=== PATIENT | female | born 1970 | race Asian ===

== ENCOUNTER 2025-02-09 14:39 | Inpatient (IN) | payer MEDICAID, OTHER ==
[~2025-02-09] VITALS: Ht 154.9 cm; Wt 41.4 kg
[~2025-02-09 14:39] MED LIST: DSS100 PO; FERR325T27 PO; FOLI-130 PO; FURO20TA5 PO; NOCURR; POTA-92 PO
[2025-02-09] MEDS: SODIUM CHLORIDE 0.9% 1,000 ML IV ONE (15:33)
[2025-02-09 15:43] LABS: PLATELET COUNT (AUTO) 241 K/uL (150-450); RED BLOOD CELL COUNT(AUTO) 4.62 MIL/uL (4.00-5.20); RED CELL DISTRIBUTION WIDTH 13.4 % (11.5-14.5); WHITE BLOOD COUNT (AUTO) 6.7 K/uL (4.5-11.0)
[2025-02-09 15:49] LABS: CALCIUM, TOTAL 9.2 mg/dL (8.8-10.5); CREATININE 1.13 mg/dL (0.60-1.30); GLOMERULAR FILTR. RATE CALC 50 mL/min (>60); GLUCOSE,RANDOM 83 mg/dL (70-110); SODIUM SERUM 137 mmol/L (136-145); UREA NITROGEN, BLOOD 24 mg/dL (7-18)
[2025-02-09 15:50] LABS: ALCOHOL, BLOOD (SERUM) < 3 mg/dL (0-10)
[2025-02-09 15:56] LABS: LACTIC ACID 0.6 mmol/L (0.4-2.0)
[2025-02-09 16:04] LABS: TROPONIN I-HIGH SENSITIVITY 36 ng/L (<51)
[2025-02-09 17:06] LABS: ASPARTATE AMINOTRANSFERASE 38.0 U/L (15-37); TOTAL PROTEIN, SERUM 8.5 g/dL (6.4-8.2)
[2025-02-09 18:30] LABS: APPEARANCE,URINE CLEAR (CLEAR); GLUCOSE, URINE (UA) NEGATIVE (NEGATIVE); LEUKOCYTE ESTERASE ,URINE SMALL (NEGATIVE); OCCULT BLOOD,URINE NEGATIVE (NEGATIVE); PH,URINE DRUG SCREEN 6.5 (5.0-8.0); SPECIFIC GRAVITIY, URINE 1.010 (1.003-1.030)
[2025-02-09 18:37] LABS: AMPHET/METH SCREEN,URINE NEGATIVE (NEGATIVE); BARBITURATE SCREEN, URINE NEGATIVE (NEGATIVE); CANNABINOID SCREEN,URINE NEGATIVE (NEGATIVE); COCAINE SCREEN,URINE NEGATIVE (NEGATIVE); METHADONE SCREEN, URINE NEGATIVE (NEGATIVE)
[2025-02-09 18:39] LABS: ALCOHOL, URINE DRUG SCREEN NEGATIVE (NEGATIVE)
[2025-02-09 18:43] LABS: NITRATE,URINE POSITIVE (NEGATIVE); SQUAMOUS EPITHELIAL CELL,UR Few /LPF (None Seen)
[2025-02-09] MEDS: MAGNESIUM SULFATE 2 GM, MVI, ADULT NO.1 WITH VIT K 10 ML, THIAMINE 100 MG, FOLIC ACID 1... IV ONE (19:16)
[2025-02-09] MEDS: CefTRIAXone 1 GM/DEXTROSE 50 ML IV SCH (21:02)
[2025-02-09] MEDS: HEPARIN SODIUM,PORCINE 5,000 UNITS/ML VIAL SQ SCH (23:32)
[2025-02-10] VITALS (7 sets, daily range): BP systolic 114–146; BP diastolic 48–63; PULSE 54–66; RESP 16–18; TEMP 97.6–98.6; O2SAT 98–100
[2025-02-10 06:48] LABS: PLATELET COUNT (AUTO) 226 K/uL (150-450); RED BLOOD CELL COUNT(AUTO) 4.30 MIL/uL (4.00-5.20); RED CELL DISTRIBUTION WIDTH 13.3 % (11.5-14.5); WHITE BLOOD COUNT (AUTO) 6.0 K/uL (4.5-11.0)
[2025-02-10 07:06] LABS: CALCIUM, TOTAL 8.6 mg/dL (8.8-10.5); CREATININE 1.07 mg/dL (0.60-1.30); GLOMERULAR FILTR. RATE CALC 53.0 mL/min (>60); GLUCOSE,RANDOM 81.0 mg/dL (70-110); SODIUM SERUM 139.0 mmol/L (136-145); UREA NITROGEN, BLOOD 18.0 mg/dL (7-18)
[2025-02-10] MEDS ORDERED: DEXTROSE 50%-WATER 25 GM/50 ML SYRINGE IVP PRN (13:15)
[2025-02-10] MEDS: MAGNESIUM SULFATE 2 GM, MVI, ADULT NO.1 WITH VIT K 10 ML, THIAMINE 100 MG, FOLIC ACID 1... IV ONE (13:41)
[2025-02-10 18:11] LABS: GLUCOMETER DEV NAME(LOC) 5S.1E; GLUCOSE,POINT OF CARE 109 MG/DL (70-110)
[2025-02-10] MEDS ORDERED: SODIUM CHLORIDE 0.9% 250 ML IV ONE (20:46)
[2025-02-11] VITALS (7 sets, daily range): BP systolic 126–163; BP diastolic 50–63; PULSE 55–67; RESP 17–18; TEMP 97.7–98.4; O2SAT 98–100
[2025-02-11 08:07] LABS: PLATELET COUNT (AUTO) 235 K/uL (150-450); RED BLOOD CELL COUNT(AUTO) 4.43 MIL/uL (4.00-5.20); RED CELL DISTRIBUTION WIDTH 13.2 % (11.5-14.5); WHITE BLOOD COUNT (AUTO) 5.2 K/uL (4.5-11.0)
[2025-02-11 08:15] LABS: CALCIUM, TOTAL 8.8 mg/dL (8.8-10.5); CREATININE 1.05 mg/dL (0.60-1.30); GLOMERULAR FILTR. RATE CALC 55.0 mL/min (>60); GLUCOSE,RANDOM 95.0 mg/dL (70-110); SODIUM SERUM 138.0 mmol/L (136-145); UREA NITROGEN, BLOOD 20.0 mg/dL (7-18)
[2025-02-11 12:51] LABS: GLUCOMETER DEV NAME(LOC) 5S.1E; GLUCOSE,POINT OF CARE 140 MG/DL (70-110)
[2025-02-11 12:51] LABS: GLUCOMETER DEV NAME(LOC) 5S.1E; GLUCOSE,POINT OF CARE 115 MG/DL (70-110)
[2025-02-11] MEDS ORDERED: GADOTERATE MEGLUMINE 10 MMOL/20 ML VIAL IVP ONE (15:04)
[2025-02-11] MEDS ORDERED: LABETALOL HCL 5 MG/ML 20 ML VIAL IVP PRN (16:15)
[2025-02-11] MEDS: ASPIRIN 81 MG CHEWABLE TABLET PO SCH (16:57)
[2025-02-11] MEDS: CLOPIDOGREL BISULFATE 75 MG TABLET PO SCH (16:57)
[2025-02-11] MEDS: ASPIRIN 81 MG CHEWABLE TABLET PO ONE (16:57)
[2025-02-11] MEDS: RINGERS SOLUTION,LACTATED 1,000 ML IV ONE (16:58)
[2025-02-11] MEDS: ATORVASTATIN CALCIUM 40 MG TABLET PO SCH (19:57)
[2025-02-12 00:06] VITALS: BP 135/55; PULSE 54; RESP 17; TEMP 97.7; O2SAT 100
[2025-02-12 03:01] LABS: GLUCOMETER DEV NAME(LOC) 5S.1E; GLUCOSE,POINT OF CARE 87 MG/DL (70-110)
[2025-02-12 03:01] LABS: GLUCOMETER DEV NAME(LOC) 5S.1E; GLUCOSE,POINT OF CARE 137 MG/DL (70-110)
[2025-02-12 04:54] VITALS: BP 114/52; PULSE 57; RESP 18; TEMP 97.5; O2SAT 100
[2025-02-12 07:03] LABS: PLATELET COUNT (AUTO) 220 K/uL (150-450); RED BLOOD CELL COUNT(AUTO) 4.33 MIL/uL (4.00-5.20); RED CELL DISTRIBUTION WIDTH 13.5 % (11.5-14.5); WHITE BLOOD COUNT (AUTO) 4.6 K/uL (4.5-11.0)
[2025-02-12 07:16] LABS: CALCIUM, TOTAL 9.2 mg/dL (8.8-10.5); CREATININE 1.16 mg/dL (0.60-1.30); GLOMERULAR FILTR. RATE CALC 49.0 mL/min (>60); GLUCOSE,RANDOM 89.0 mg/dL (70-110); SODIUM SERUM 138.0 mmol/L (136-145); UREA NITROGEN, BLOOD 25.0 mg/dL (7-18)
[2025-02-12 07:18] LABS: CHOL/HDL RATIO 2.3 (3.9-5.7); LDL CHOL (CALC.) 85.0 mg/dL (0-130)
[2025-02-12 07:20] VITALS: BP 112/51; PULSE 53; RESP 18; TEMP 98; O2SAT 97
[2025-02-12] MEDS ORDERED: 0.9% SODIUM CHLORIDE 10 ML SYRINGE IVP ONE (09:47)
[2025-02-12] MEDS ORDERED: SODIUM CHLORIDE 0.9% 100 ML ONE (09:47)
[2025-02-12] MEDS ORDERED: IOHEXOL 350 MG/ML 100 ML VIAL ONE (09:47)
[2025-02-12 11:19] VITALS: BP 123/77; PULSE 57; RESP 19; TEMP 97.7; O2SAT 99
[2025-02-12 12:11] LABS: GLUCOMETER DEV NAME(LOC) 5S.1E; GLUCOSE,POINT OF CARE 79 MG/DL (70-110)
[2025-02-12 15:45] VITALS: BP 117/56; PULSE 72; RESP 18; TEMP 98; O2SAT 96
[2025-02-12 18:01] LABS: GLUCOMETER DEV NAME(LOC) 5S.1E; GLUCOSE,POINT OF CARE 125 MG/DL (70-110)
[2025-02-12 18:01] LABS: GLUCOMETER DEV NAME(LOC) 5S.1E; GLUCOSE,POINT OF CARE 102 MG/DL (70-110)
[2025-02-12 20:25] VITALS: BP 123/60; PULSE 75; RESP 18; TEMP 98.4; O2SAT 100
[2025-02-12] MEDS: INSULIN LISPRO 100 UNITS/ML SQ PRN (21:05)
[2025-02-13 00:10] VITALS: BP 127/84; PULSE 63; RESP 18; TEMP 98.2; O2SAT 99
[2025-02-13 04:15] VITALS: BP 117/70; PULSE 61; RESP 15; TEMP 98.1; O2SAT 99
[2025-02-13 07:15] VITALS: BP 108/55; PULSE 69; RESP 18; TEMP 98.4; O2SAT 99
[2025-02-13 11:25] LABS: GLUCOMETER DEV NAME(LOC) 5S.1E; GLUCOSE,POINT OF CARE 106 MG/DL (70-110)
[2025-02-13 11:37] VITALS: BP 126/56; PULSE 65; RESP 18; TEMP 97.5; O2SAT 100
[2025-02-13 12:10] LABS: GLUCOMETER DEV NAME(LOC) 5S.1E; GLUCOSE,POINT OF CARE 98 MG/DL (70-110)
[2025-02-13] MEDS ORDERED: ASPI-1450 PO (12:23)
[2025-02-13] MEDS ORDERED: CEPH-558 PO (12:23)
[2025-02-13] MEDS ORDERED: CLOP75TA83 PO (12:23)
[2025-02-13] MEDS ORDERED: ATOR40TA71 PO (12:23)
[2025-02-14 06:16] LABS: GLUCOSE,POINT OF CARE 150 MG/DL (70-110)
== END 2025-02-13 15:55 | disposition home or self-care (01) | DRG 45 ==
LOC: EMS 14:39 → EDH 18:13 → 5N 02-10 04:04
PROVIDERS: ADMIT Internal Medicine; ATTEND Internal Medicine
DX: I63.522 Cerebral infarction due to unspecified occlusion or stenosis of left anterior cerebral artery (principal); G93.41 Metabolic encephalopathy; E43 Unspecified severe protein-calorie malnutrition; N13.6 Pyonephrosis; Z79.02 Long term (current) use of antithrombotics/antiplatelets; I16.0 Hypertensive urgency; E11.9 Type 2 diabetes mellitus without complications; F10.10 Alcohol abuse, uncomplicated; E78.5 Hyperlipidemia, unspecified; I10 Essential (primary) hypertension; R29.6 Repeated falls; R54 Age-related physical debility; W18.39XA Other fall on same level, initial encounter; S00.83XA Contusion of other part of head, initial encounter; Z79.82 Long term (current) use of aspirin; Y90.0 Blood alcohol level of less than 20 mg/100 ml; Z87.59 Personal history of other complications of pregnancy, childbirth and the puerperium; Z87.891 Personal history of nicotine dependence; Z68.1 Body mass index [BMI] 19.9 or less, adult; Y93.89 Activity, other specified; Y92.89 Other specified places as the place of occurrence of the external cause; Y99.8 Other external cause status; Z79.899 Other long term (current) drug therapy
CPT/HCPCS: 70450; 70553; 71045; 74177; 76700; 80048; 80061; 80076; 80307; 81001; 82140; 82271; 82607; 82962; 83605; 83690; 83735; 84443; 84484; 85025; 87040; 87077; 87086; 87177; 87186; 92526; 92610; 93005; 93306; 97112; 97116; 97163; 97167; 97530; 97535; 99285; G0378; G0480; J0696; J1644; J3411; J3475; J3490; J7030; J7040; J7050; J7120; 36415-L1; 36415-TC